=== PATIENT | female | born 1975 | race Caucasian/White ===

== ENCOUNTER 2018-11-13 15:58 | Outpatient (CLI) | payer OTHER | END 2018-11-13 18:00 | disposition home or self-care (01) | LOC: LAB 15:58 | DX: M71.011 Abscess of bursa, right shoulder (principal) ==

== ENCOUNTER 2019-02-05 16:12 | Outpatient (CLI) | payer OTHER | END 2019-02-05 16:24 | disposition home or self-care (01) | LOC: LAB 16:12 | DX: L02.414 Cutaneous abscess of left upper limb (principal) ==